=== PATIENT | female | born 2000 | race Caucasian/White ===

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

== ENCOUNTER 2022-05-22 17:03 | Emergency (ER) | payer OTHER ==
[2022-05-22 17:08] VITALS: BP 100/59; PULSE 87; RESP 18; TEMP 98.1; BMI 21.7
[2022-05-22] MEDS ORDERED: KETOROLAC TROMETHAMINE 30 MG/1 ML VIAL IM ONE (18:18)
== END 2022-05-22 18:41 | disposition home or self-care (01) ==
LOC: JER 17:03
PROC: 3E023GC Introduction of Other Therapeutic Substance into Muscle, Percutaneous Approach (ICD-10-PCS; principal; 2022-05-22)
DX: B34.9 Viral infection, unspecified (principal)
CPT/HCPCS: 96372; 99284-25

== ENCOUNTER 2023-10-09 05:49 | Emergency (ER) | payer OTHER ==
[2023-10-09 05:54] VITALS: BP 99/65; RESP 20; TEMP 98; BMI 22.1
[2023-10-09] MEDS ORDERED: ACETAMINOPHEN 325 MG TABLET (FP) ONE (06:07)
[2023-10-09] MEDS: ACETAMINOPHEN 500 MG TABLET (FP) PO ONE (06:10)
[2023-10-09 06:35] VITALS: PULSE 91
== END 2023-10-09 06:45 | disposition home or self-care (01) ==
LOC: JER 05:49
DX: M25.572 Pain in left ankle and joints of left foot (principal); S93.401A Sprain of unspecified ligament of right ankle, initial encounter; X50.1XXA Overexertion from prolonged static or awkward postures, initial encounter
CPT/HCPCS: 73610-TC-LT-FY; 73630-TC-LT; 99283-25

== ENCOUNTER 2024-05-01 20:01 | Emergency (ER) | payer OTHER ==
[2024-05-01 20:07] VITALS: BP 104/68; PULSE 86; RESP 16; TEMP 98.1; BMI 21.9
== END 2024-05-01 20:41 | disposition home or self-care (01) ==
LOC: JERFT 20:01
DX: R53.81 Other malaise (principal)
CPT/HCPCS: 99283-25